=== PATIENT | female | born 1985 ===

== ENCOUNTER 2024-08-23 07:18 | Emergency (ER) | payer MEDICAID, SELFPAY ==
[2024-08-23] VITALS (7 sets, daily range): BP systolic 123–142; BP diastolic 63–82; PULSE 68–101; RESP 17–25; TEMP 35.8–36.7; O2SAT 94–99; BMI 22.7
--- NOTE | ~2024-08-23 | XR_ITS ---
EXAMINATION: XR CHEST CLINICAL INFORMATION: Shortness of breath. COMPARISON: None available. TECHNIQUE: Frontal view of the chest was obtained. FINDINGS: The lungs are well-expanded and clear of acute process. The heart size and pulmonary vascularity is normal. No gross bony abnormality seen. There is mild dextroscoliosis of dorsolumbar spine. XR/XR chest 1V IMPRESSION: Unremarkable chest exam. Electronically signed by: Fred Mathur MD 08/23/2024 08:39 AM EDT
--- NOTE | 2024-08-23 07:58 | ED_ITS ---
HPI - Asthma General Chief Complaint: Asthma Stated Complaint: Asthma Time Seen by Provider: 08/23/24 07:56 Source: patient Mode of arrival: ambulatory Limitations: no limitations History of Present Illness ED Provider: DR. Garcia HPI Narrative: 39-year-old female with history of asthma, patient is an active smoker came in for evaluation of wheezing and difficulty breathing with dry cough for the past 3 days that is worsened since 04:00 today, patient is been taking her updraft treatment at home with no relief. No fever, no chills, positive cough with clear thick sputum, no sick contacts, no recent travel, no lower extremity swelling or tenderness, no recent prolonged immobilization. Related Data Previous Rx's ?Medication ?Instructions ?Recorded albuterol sulfate 90 mcg/actuation 2 puff inhalation Q6H PRN 08/23/24 aerosol inhaler shortness of breath or wheezing #8.5 grams azithromycin 250 mg tablet See Rx Instructions PO .COMPLEX #6 08/23/24 (Zithromax Z-Phil) tabs prednisone 20 mg tablet 20 mg PO BID #10 tabs 08/23/24 Allergies Allergy/AdvReac Type Severity Reaction Status Date / Time shellfish derived Allergy Anaphylaxis Verified 08/23/24 07:21 Review of Systems 2 Review of Systems: All other systems are reviewed and are negative Constitutional: Reports as per HPI and Reports no additional constitutional complaints Eyes: Reports as per HPI and Reports no additional eye complaints Reports system reviewed and no additional complaints, except as documented Cardiovascular: Reports as per HPI and Reports no additional cardiovascular complaints Respiratory: Reports as per HPI and Reports no additional respiratory complaints Gastrointestinal: Reports as per HPI and Reports no additional gastrointestinal complaints Genitourinary: Reports no additional female genitourinary complaints Musculoskeletal: Reports no additional musculoskeletal complaints Skin/Breast: Reports system reviewed and no additional complaints, except as docu Psychiatric: Reports no additional psychiatric complaints Endocrine: Reports no additional endocrine complaints Hematologic/Lymphatic: Reports no additional hematologic/lymphatic complaints Allergic/Immunologic: Reports no additional allergic/immunologic complaints Reports system reviewed and no additional complaints, except as documented and Reports Abnormal speech present [facility] Social History Social History Alcohol intake: current Alcohol intake frequency: holidays/special occasions only Smoked in Last 30 Days: Yes Use of substances other than those prescribed or required for medical reasons: Yes Substance Use Type: Marijuana Substance Use Frequency: Chronic Longstanding Advance Directives: No Advance Directives Information Provided: No Physical Exam 2 Vital Signs: Vital Signs: Last Vital Signs Temp 96.5 F L 08/23/24 07:19 Pulse 96 08/23/24 10:51 Resp 17 08/23/24 10:21 BP 123/63 08/23/24 10:21 Pulse Ox 98 08/23/24 10:51 O2 Del Method Room Air 08/23/24 10:51 BMI result Body Mass Index 22.7 Vital signs have been reviewed and appear to be correct. Blood pressure elevated. Heart rate normal. Respiratory rate normal. Temperature normal. Oxygen saturation normal. Appearance: Alert. Oriented X3. No acute distress. Head: Normal external exam. Normocephalic. Atraumatic. No Hsu signs noted. No raccoon eyes noted Eyes: PERRLA. EOMI. Conjunctiva and sclera normal. Eyelids normal. ENT: TM's Normal. Pharynx normal. Uvula midline. Moist mucous membranes. No trismus noted. No drooling noted. No muffled voice noted. Neck: Normal inspection. Neck supple. FROM. No adenopathy. Thyroid Normal. No meningeal signs. No neck mass noted. CVS: Normal heart rate and rhythm. Heart sound normal. No murmurs noted. Pulses normal throughout. Respiratory: No respiratory distress. Painless inspiration. Breath sounds normal. diffuse expiratory wheezing with prolonged expiration, No accessory muscle usage noted or decreased air movement noted. Abdomen: Soft and nontender. Bowel sounds normal in all 4 quadrants. No distention noted. No organomegaly noted. No visible injury noted. Back: No CVA tenderness. Full range of motion noted. Skin: Skin warm and dry. Normal skin color. Normal skin turgor. No rashes/lesions/lacerations noted. Extremities: No lower extremity edema. Extremities exhibit normal range of motion. Extremities nontender. Neuro: Oriented X 3. Cranial nerve exam: II-XII are grossly intact No motor deficit. No sensory deficit. Reflexes normal. Course Reevaluation(s) Reevaluation #1: Patient feels better, less wheezing, more comfortable breathing, pulse oximetry while ambulating is 98% on room air and heart rate is 96 beats per minute Will discharge the patient on prednisone /bronchodilator and a Z-Phil. Time: 10:57 Medications Administered Discontinued Medications Generic Name Dose Route Start Last Admin Trade Name Miryam PRN Reason Stop Dose Admin Albuterol Sulfate 5 mg/ 0 mg 08/23/24 08:02 08/23/24 08:06 Albuterol/Ipratropium 3 ml INHALE 08/23/24 08:03 1 each ONCE ONE Administration Albuterol Sulfate 2.5 mg/ 0 mg 08/23/24 09:43 08/23/24 09:45 Albuterol/Ipratropium 3 ml INHALE 08/23/24 09:44 1 dose ONCE ONE Administration Magnesium Sulfate 2 gm in 50 mls @ 25 mls/hr 08/23/24 07:57 08/23/24 08:12 Magnesium Sulfate/H2o IV 08/23/24 09:56 25 mls/hr ONCE ONE Administration Methylprednisolone Sodium Succinate 125 mg 08/23/24 07:57 08/23/24 08:12 Methylprednisolone Sod Succ 125 Mg/2 Ml Vial IVPUSH 08/23/24 07:58 125 mg ONCE ONE Administration Medical Decision Making Differential Diagnosis Differential Diagnoses: The differential diagnosis associated with the presentation includes ( Pneumonia, pneumothorax, pleural effusion, electrolyte derangement, severe anemia.) Admission/Observation Consideration of admission/observation: Escalation of care including admission/observation considered Lab Data MDM Lab Attestation statement: I reviewed the patient's lab results. 08/23/24 08:12 10 08:57 Labs: Lab Results 08/23/24 08/23/24 Range/Units 08:12 08:57 WBC 7.7 (4.8-10.8) X10*3/uL RBC 4.78 (4.20-5.50) X10*6/uL Hgb 12.8 (12.0-16.0) g/dl Hct 38.7 (37.0-47.0) % MCV 81.0 (80.0-98.0) fL MCH 26.8 L (27.0-33.0) pg MCHC 33.1 (31.0-35.0) g/dl RDW 20.2 H (11.0-16.0) % Plt Count 304 (160-400) X10*3/uL MPV 10.7 (9.4-12.3) fL Immature Gran % (Auto) 0.4 (0.0-0.4) % Neut % (Auto) 63.9 (45-73) % Lymph % (Auto) 17.3 L (20-40) % [place] % (Auto) 7.9 (2-11) % Eos % (Auto) 9.3 H (0-4) % Baso % (Auto) 1.2 (0-2) % Lymph # (Auto) 1.3 (1.2-4.9) X10*3/uL [place] # (Auto) 0.6 (0.1-1.2) X10*3/uL Eos # (Auto) 0.7 H (0.0-0.4) X10*3/uL Baso # (Auto) 0.1 (0.0-0.2) X10*3/uL Abs Immat Gran (auto) 0.03 (0.00-0.03) X10*3/uL Absolute Neuts (auto) 4.9 (2.0-8.3) x10*3/uL Absolute Nucleated RBC 0.000 (0.0-0.012) X10*3/uL Nucleated RBC % (auto) 0.0 (0.0-0.2) /100WBC Sodium 138 (135-145) mmol/L Potassium 3.8 (3.3-5.1) mmol/L Chloride 109 H (96-108) mmol/L Carbon Dioxide 22 (22-29) mmol/L Anion Gap 11 L (12-20) BUN 7 L (9-16) mg/dL Creatinine 0.67 (0.5-1.4) mg/dL Estim Creat Clear Calc 99.4 Estimated GFR > 60 Random Glucose 106 (60-115) mg/dL Calcium 8.7 (8.4-10.2) mg/dL Total Bilirubin 0.4 (0.0-1.0) mg/dL Direct Bilirubin 0.2 (0.0-0.5) mg/dL AST 13 (5-31) U/L ALT 10 (0-31) U/L Alkaline Phosphatase 62 (39-117) U/L Troponin I High Sens < 2.7 (<3.5-17.0) ng/L Total Protein 7.7 (6.5-8.0) g/dL Albumin 4.2 (3.5-5.0) g/dL Lipase 10 (8-78) U/L Influenza Type A (PCR) NEGATIVE (Negative) Influenza Type B (PCR) NEGATIVE (Negative) RSV RNA Qual (PCR) NEGATIVE (Negative) SARS-CoV-2 RNA (RT-PCR) NEGATIVE (Negative) Independent Interpretation I performed an independent interpretation of an: Plain X-Ray ( chest: Unremarkable chest x-ray.) Radiology Impression Discussion of test interpretation with radiology: I have reviewed the radiologist's reading. Discharge Plan Discharge Clinical Impression: Asthma with acute exacerbation Patient Disposition: Home, Self-Care Instructions: Asthma (ED) Prescriptions: New prednisone 20 mg tablet 20 mg PO BID Qty: 10 0RF albuterol sulfate 90 mcg/actuation HFA aerosol inhaler 2 puff inhalation Q6H PRN (Reason: shortness of breath or wheezing) Qty: 8.5 0RF azithromycin [Zithromax Z-Phil] 250 mg tablet See Rx Instructions .ROUTE .COMPLEX Qty: 6 0RF Rx Instructions: For 250 mg dose pack: take 500 mg today (day 1), then 250 mg for 4 days (days 2-5) Print Language: Czech
[2024-08-23] MEDS: Albuterol Sulfate 5 MG, Albuterol/Iprat 2.5/0.5MG 3 ML 3 ML INHALE (08:06)
[2024-08-23] MEDS: Magnesium Sulfate/H2O 2 GM/50 ML PIGGYBACK IV (08:12)
[2024-08-23] MEDS: methylPREDNISolone Sod Succ 125 MG/2 ML VIAL IVPUSH (08:12)
[2024-08-23 08:19] LABS: MANUAL DIFF FLAG NO
[2024-08-23 08:21] LABS: Basophils Absolute Auto 0.1 X10*3/uL (0.0-0.2); Basophils Percent Auto 1.2 % (0-2); Eosinophils Absolute Auto 0.7 X10*3/uL (0.0-0.4); Eosinophils Percent Auto 9.3 % (0-4); Hematocrit 38.7 % (37.0-47.0); Hemoglobin 12.8 g/dl (12.0-16.0); Imm Gran Abs Auto 0.03 X10*3/uL (0.00-0.03); Imm Gran Pct Auto 0.4 % (0.0-0.4); Lymphocytes Absolute Auto 1.3 X10*3/uL (1.2-4.9); Lymphocytes Percent Auto 17.3 % (20-40); Mean Corpuscular HGB Conc 33.1 g/dl (31.0-35.0); Mean Corpuscular Hemoglobin 26.8 pg (27.0-33.0); Mean Platelet Volume 10.7 fL (9.4-12.3); Monocytes Absolute Auto 0.6 X10*3/uL (0.1-1.2); Monocytes Percent Auto 7.9 % (2-11); Neutrophils Absolute Auto 4.9 x10*3/uL (2.0-8.3); Neutrophils Percent Auto 63.9 % (45-73); Platelet Count 304 X10*3/uL (160-400); Red Blood Count 4.78 X10*6/uL (4.20-5.50); Red Cell Distribution Width 20.2 % (11.0-16.0); White Blood Count 7.7 X10*3/uL (4.8-10.8)
[2024-08-23 09:19] LABS: Alanine Aminotransferase 10 U/L (0-31); Albumin Level 4.2 g/dL (3.5-5.0); Alkaline Phosphatase 62 U/L (39-117); Anion Gap 11 (12-20); Aspartate Amino Transferase 13 U/L (5-31); Bilirubin Direct 0.2 mg/dL (0.0-0.5); Bilirubin Total 0.4 mg/dL (0.0-1.0); Blood Urea Nitrogen 7 mg/dL (9-16); Calcium 8.7 mg/dL (8.4-10.2); Carbon Dioxide 22 mmol/L (22-29); Chloride 109 mmol/L (96-108); Creatinine Clr Calc Pharmacy 99.4; Estimated Glomerular Filt Rate > 60; Glucose Random 106 mg/dL (60-115); Lipase 10 U/L (8-78); Potassium 3.8 mmol/L (3.3-5.1); Sodium 138 mmol/L (135-145); Total Protein 7.7 g/dL (6.5-8.0)
[2024-08-23 09:24] LABS: Influenza A PCR NEGATIVE (Negative); Influenza B PCR NEGATIVE (Negative); Resp Syncy Virus RNA Qual PCR NEGATIVE (Negative); SARS COV2 PCR INHOUSE NEGATIVE (Negative)
[2024-08-23 09:29] LABS: Troponin-I High Sensitivity < 2.7 ng/L (<3.5-17.0)
[2024-08-23] MEDS: Albuterol Sulfate 2.5 MG, Albuterol/Iprat 2.5/0.5MG 3 ML 3 ML INHALE (09:45)
== END 2024-08-23 11:29 | disposition home or self-care (01) ==
PROVIDERS: Emergency Provider Emergency Medicine
DX: J45.901 Unspecified asthma with (acute) exacerbation (principal); R05.9 Cough, unspecified; R06.02 Shortness of breath; Z03.818 Encounter for observation for suspected exposure to other biological agents ruled out; Z79.899 Other long term (current) drug therapy
CPT/HCPCS: 0241U; 71045; 80048; 80076; 83690; 84484; 85025; 94640; 96365; 96366; 96375; 99284; 99285; J2919; J3475

== ENCOUNTER 2025-01-12 15:01 | Emergency (ER) | payer MEDICAID, SELFPAY ==
[2025-01-12 15:38] VITALS: BP 120/79; PULSE 100; RESP 24; TEMP 36.3; O2SAT 100; BMI 22.5
[2025-01-12] MEDS: Ondansetron ODT 4 MG TAB.RAPDIS TRANSLINGU (15:43)
--- NOTE | 2025-01-12 17:20 | ED.GENADULT ---
HPI - General Adult General Chief complaint: Nausea/Vomiting/Diarrhea Stated complaint: vomiting Related Data Previous Rx's ?Medication ?Instructions ?Recorded albuterol sulfate 90 mcg/actuation 2 puff inhalation Q6H PRN 08/23/24 aerosol inhaler shortness of breath or wheezing #8.5 grams azithromycin 250 mg tablet See Rx Instructions PO .COMPLEX #6 08/23/24 (Zithromax Z-Phil) tabs prednisone 20 mg tablet 20 mg PO BID #10 tabs 08/23/24 Allergies Allergy/AdvReac Type Severity Reaction Status Date / Time shellfish derived Allergy Anaphylaxis Verified 01/12/25 15:40 [facility] Social History Social History Alcohol intake: current Alcohol intake frequency: holidays/special occasions only Substance Use Type: Marijuana Advance Directives: No Advance Directives Information Provided: No Do you have a plan to hurt others: No Plan Physical Exam ED Vital Signs: Vital Signs - 24 hr 01/12/25 15:38 Temperature 97.4 F Pulse Rate 100 Respiratory Rate 24 H Blood Pressure 120/79 Pulse Oximetry 100 Oxygen Delivery Method Room Air BMI result Body Mass Index 22.5 Course Course Course Narrative: This is a rapid medical exam performed by Monique Avalos NP: Additional HPI, ROS, PE not included below will be deferred to primary provider. Patient is a 39-year-old female presenting with nausea and vomiting since this am with associated abd pain. Plan: viral swabs, labs, UA Medications Administered Discontinued Medications Generic Name Dose Route Start Last Admin Trade Name Freq PRN Reason Stop Dose Admin Ondansetron HCl 4 mg 01/12/25 15:42 01/12/25 15:43 Ondansetron Odt 4 Mg Tab.Rapdis TRANSLINGU 01/12/25 15:43 4 mg ONCE ONE Administration Medical Decision Making Lab Data 01/12/25 17:38 01/12/25 17:38 Labs: Lab Results 01/12/25 Range/Units 17:38 WBC 9.1 (4.8-10.8) X10*3/uL RBC 5.13 (4.20-5.50) X10*6/uL Hgb 14.7 (12.0-16.0) g/dl Hct 44.4 (37.0-47.0) % MCV 86.5 (80.0-98.0) fL MCH 28.7 (27.0-33.0) pg MCHC 33.1 (31.0-35.0) g/dl RDW 17.3 H (11.0-16.0) % Plt Count 261 (160-400) X10*3/uL MPV 10.7 (9.4-12.3) fL Immature Gran % (Auto) 0.2 (0.0-0.4) % Neut % (Auto) 84.7 H (45-73) % Lymph % (Auto) 9.7 L (20-40) % [place] % (Auto) 4.7 (2-11) % Eos % (Auto) 0.4 (0-4) % Baso % (Auto) 0.3 (0-2) % Lymph # (Auto) 0.9 L (1.2-4.9) X10*3/uL [place] # (Auto) 0.4 (0.1-1.2) X10*3/uL Eos # (Auto) 0.0 (0.0-0.4) X10*3/uL Baso # (Auto) 0.0 (0.0-0.2) X10*3/uL Abs Immat Gran (auto) 0.02 (0.00-0.03) X10*3/uL Absolute Neuts (auto) 7.7 (2.0-8.3) x10*3/uL Absolute Nucleated RBC 0.000 (0.0-0.012) X10*3/uL Nucleated RBC % (auto) 0.0 (0.0-0.2) /100WBC Smear Tech's Comments VERIFIED PT 11.8 (10.9-12.4) SEC INR 1.0 (0.9-1.1) Sodium 139 (135-145) mmol/L Potassium 3.4 (3.3-5.1) mmol/L Chloride 106 (96-108) mmol/L Carbon Dioxide 25 (22-29) mmol/L Anion Gap 11 L (12-20) BUN 12 (9-16) mg/dL Creatinine 0.62 (0.5-1.4) mg/dL Estim Creat Clear Calc 107.4 Estimated GFR > 60 Random Glucose 140 H (60-115) mg/dL Calcium 9.1 (8.4-10.2) mg/dL Total Bilirubin 0.2 (0.0-1.0) mg/dL AST 42 H (5-31) U/L ALT 36 H (0-31) U/L Alkaline Phosphatase 82 (39-117) U/L Total Protein 8.5 H (6.5-8.0) g/dL Albumin 4.3 (3.5-5.0) g/dL Beta HCG, Quant < 2 mIU/mL Influenza Type A (PCR) NEGATIVE (Negative) Influenza Type B (PCR) NEGATIVE (Negative) RSV RNA Qual (PCR) NEGATIVE (Negative) SARS-CoV-2 RNA (RT-PCR) NEGATIVE (Negative) Discharge Plan Discharge Clinical Impression: Nausea & vomiting Patient Disposition: Left W/O Completing Treatment Prescriptions: No Action prednisone 20 mg tablet 20 mg PO BID Qty: 10 0RF albuterol sulfate 90 mcg/actuation HFA aerosol inhaler 2 puff inhalation Q6H PRN (Reason: shortness of breath or wheezing) Qty: 8.5 0RF azithromycin [Zithromax Z-Phil] 250 mg tablet See Rx Instructions .ROUTE .COMPLEX Qty: 6 0RF Rx Instructions: For 250 mg dose pack: take 500 mg today (day 1), then 250 mg for 4 days (days 2-5) Discharge Date/Time: 01/12/25 19:47
[2025-01-12 17:43] LABS: Basophils Percent Auto 0.3 % (0-2); Eosinophils Percent Auto 0.4 % (0-4); Hematocrit 44.4 % (37.0-47.0); Hemoglobin 14.7 g/dl (12.0-16.0); Imm Gran Abs Auto 0.02 X10*3/uL (0.00-0.03); Imm Gran Pct Auto 0.2 % (0.0-0.4); Lymphocytes Absolute Auto 0.9 X10*3/uL (1.2-4.9); Lymphocytes Percent Auto 9.7 % (20-40); MANUAL DIFF FLAG SCAN; Mean Corpuscular HGB Conc 33.1 g/dl (31.0-35.0); Mean Corpuscular Hemoglobin 28.7 pg (27.0-33.0); Mean Corpuscular Volume 86.5 fL (80.0-98.0); Mean Platelet Volume 10.7 fL (9.4-12.3); Monocytes Absolute Auto 0.4 X10*3/uL (0.1-1.2); Monocytes Percent Auto 4.7 % (2-11); Neutrophils Absolute Auto 7.7 x10*3/uL (2.0-8.3); Neutrophils Percent Auto 84.7 % (45-73); Platelet Count 261 X10*3/uL (160-400); Red Blood Count 5.13 X10*6/uL (4.20-5.50); Red Cell Distribution Width 17.3 % (11.0-16.0); SCAN SMEAR FLAG 1; White Blood Count 9.1 X10*3/uL (4.8-10.8)
[2025-01-12 17:48] LABS: Prothrombin Time 11.8 SEC (10.9-12.4)
[2025-01-12 18:03] LABS: SLIDE REVIEW VERIFIED
[2025-01-12 18:04] LABS: Alanine Aminotransferase 36 U/L (0-31); Albumin Level 4.3 g/dL (3.5-5.0); Alkaline Phosphatase 82 U/L (39-117); Anion Gap 11 (12-20); Aspartate Amino Transferase 42 U/L (5-31); Bilirubin Total 0.2 mg/dL (0.0-1.0); Blood Urea Nitrogen 12 mg/dL (9-16); Calcium 9.1 mg/dL (8.4-10.2); Carbon Dioxide 25 mmol/L (22-29); Chloride 106 mmol/L (96-108); Creatinine Clr Calc Pharmacy 107.4; Estimated Glomerular Filt Rate > 60; Glucose Random 140 mg/dL (60-115); HCG Quantitative < 2 mIU/mL; Potassium 3.4 mmol/L (3.3-5.1); Sodium 139 mmol/L (135-145); Total Protein 8.5 g/dL (6.5-8.0)
[2025-01-12 18:28] LABS: Influenza A PCR NEGATIVE (Negative); Influenza B PCR NEGATIVE (Negative); Resp Syncy Virus RNA Qual PCR NEGATIVE (Negative); SARS COV2 PCR INHOUSE NEGATIVE (Negative)
--- NOTE | 2025-01-12 19:47 | PC.NURSE ---
no answer from WR at 194
--- OUTSIDE RECORDS SUMMARY | 2025-01-12 20:00 | XMS_ITS | Clinical Summary ---
Author Organization [facility] Address [address] [place] [address] Phone Care Team Providers Care Label Remover Name Role Phone Physician, Pcp Unknown Primary Care Provider Ivonne vailable Social History Tobacco Use Types Packs/Day Years Used Date Smoking Tobacco: Never Assessed Comments Unknown Sex and Gender Information Value Date Recorded Sex Assigned at Not on file Legal Sex Female 3:44 PM EDT Gender Identity Not on file Sexual Orientation Not on file Plan of Treatment Health Maintenance Due Date Last Done Comments Breast Cancer Screening 1983 DTaP,Tdap,and Td Vaccines (1 - Tdap) 2002 Hepatitis B Vaccines (1 of 3 - 19+ 3-dose series) 2002 Pneumococcal Vaccine: Pediat rics (0 to 5 Years) and At-Risk Patients (6 to 64 Years) (1 of 2 - PCV) 2002 Cervical Cancer Screening: P ap Smear 02/03/2004 COVID-19 Vaccine (2023-2 5 season) 2024 Influenza Vaccine (#1) 2024 Depression Screening 08/26/2024 HIV Screening 08/26/2024 Hepatitis C Screening 08/26/2024 Social Influencers of Health Screening 08/26/2024 HIB Vaccines Aged Out No longer eligi ble based on patient's age to complete this topic HPV Vaccines Aged Out No longer eligi ble based on patient's age to complete this topic Hepatitis A Vaccines Aged Out No long er eligible based on patient's age to complete this topic IPV Vaccines Aged Out No longer eligi ble based on patient's age to complete this topic MMR Vaccines Aged Out No longer eligi ble based on patient's age to complete this topic Meningococcal ACWY Vaccine Aged Out N o longer eligible based on patient's age to complete this topic Meningococcal B Vacine Aged Out No lo nger eligible based on patient's age to complete this topic RSV Immunization Patients Un yo 20 months Aged Out No longer eligible b ased on patient's age to complete this topic Varicella Vaccines Aged Out No longer eligible based on patient's age to complete this topic Insurance MEDICAID - [place] Care Teams Label Remover Relationship Specialty Start Date End Date Physician, Pcp Unknown PCP - General 10/22/24
--- OUTSIDE RECORDS SUMMARY | 2025-01-12 20:00 | XMS_ITS | Data Portability ---
Author Organization [place] [facility] Address [address] [place] [address] Assessment No assessment recorded. Plan of Treatment Reminders Order Date Submit Date Provider Last Modified By Organization Details Last Modified Time Details Appointments None recorde d. Lab drug screen, urine 023 01/29/20 [email or web address], [address], [place], [address], 08:19:43 Referral None recorde d. Procedures None recorde d. Surgeries None recorde d. Imaging None recorde d. Medication Orders None recorde d. Patient TargetsNo targets recorded. Patient InstructionsNo instructions recorded. Reason for Referral None Reported. Results Created Date Observation Date Name Description Value Unit Range Abnormal Flag Note LastModifiedBy Organization Detail LastModifiedTime 01/29/2001/28/2023 drug scree n, urine THC negati ve Not Available [address] [facility], [place], [address], 01/28/2023 11:20:23 01/29/20 23 01/28/2023 drug scree n, urine MIKA negati ve Not Available [address], [place], [address], 01/28/2023 11:20:23 01/29/20 23 01/28/2023 drug scree n, urine OPI negati ve Not Available [address], [place], [address], 01/28/2023 11:20:23 01/29/20 23 01/28/2023 drug scree n, urine METH negati ve Not Available [address] [address], [place], [address], 01/28/2023 11:20:23 01/29/20 23 01/28/2023 drug scree n, urine AMP negati ve Not Available [address] [address], [place], [address], 01/28/2023 11:20:23 01/29/20 23 01/28/2023 drug scree n, urine PCP negati ve Not Available [address] [address], [place], [address], 01/28/2023 11:20:23 01/29/20 23 01/28/2023 drug scree n, urine BZP negati ve Not Available [address] [address], [place], [address], 01/28/2023 11:20:23 01/29/20 23 01/28/2023 drug scree n, urine BAR negati ve Not Available [address] [address], [place], [address], 01/28/2023 11:20:23 01/29/20 23 01/28/2023 drug scree n, urine MTD negati ve Not Available [address] [address], [place], [address], 01/28/2023 11:20:23 01/29/20 23 01/28/2023 drug scree n, urine OXY negati ve Not Available [address], [address], 01/28/2023 11:20:23 01/29/20 23 01/28/2023 drug scree n, urine MDMA negati ve Not Available [address] [address], [place], [address], 01/28/2023 11:20:23 Result Notes None recorded. Medical Equipment None Reported. Vitals None Recorded Social History None recorded. Functional Status None recorded. Mental Status None recorded. Family History Nothing Reported. Medical History No medical history recorded. Gynecological HistoryNo gynecological history recorded. Obstetrics History GPAL:G 0 P 0 0 0 0 Past Encounters Encounter ID Performer Location Encounter Start Date Encounter Closed Date Diagnosis/Indication Diagnosis SNOMED-CT Code Diagnosis ICD10 Code Diagnosis Note [id number] Farzad Chang MD [address] [place] [address] 01/28/2023 11:01:07 01/28/2023 11:21:52 History and physical examination, pre-employment 188498952 Z02.1 Health Concerns Section Related Observation LastModified by Organization Detai ls LastModified Time None Recorded Concern Status LastModified by Organization Details LastModified Time None Recorded Advance Directives Directive None Recorded Payers Encounter Date Sequence Insurance Name Policy Number Policy Cody Covered Member ID Cody Member ID Guarantor Name 01/28/2023 DARCY Cardenas Ariana [id number] OBGyn Episode No OBEpisode recorded.
--- OUTSIDE RECORDS SUMMARY | 2025-01-12 20:00 | XMS_ITS | Clinical Summary ---
Author Organization [facility] Address [address] [place] [address] Care Team Providers Care Photographic Technician Name Role Phone Chaparrita Lion PA-C Primary Care Provider Source Comments PLEASE NOTE, if this patient is a minor, it may be UNLAWFUL to discuss sensitive information that is contained in these records (such as FAMILY PLANNING, MENTAL HEALTH or SUBSTANCE ABUSE) with the minor patient's parent or other person without the patient's specific authorization.[facility] Allergies Active Allergy Reactions Criticality Noted Date Comments Shellfish Derived Anaphylaxis High 05/26/2024 Medications diclofenac sodium (VOLTAREN) 1 % gelIndications:P ersonal history of scoliosis,Chroni c bilateral low back pain without sciatica Apply 4 g topically 2 (two) times daily 150 g 1 4 Active nicotine, polacrilex, (NICORETTE) 2 mg gumIndications:T obacco use as needed for cravings - Weeks 1-6: Chew 1 piece of gum every 1-2 hours. Weeks 7-9: Chew 1 piece of gum every 2-4 hours. Weeks 10-12: Chew 1 piece of gum every 4-8 hours. (minimum: 9 pieces/day for first 6 weeks; maximum: 24 pieces/day during entire regimen 110 Each 3 4 Active budesonide-formo teroL (SYMBICORT) 160-4.5 mcg/actuation inhalerIndicatio ns:Asthma, unspecified asthma severity, unspecified whether complicated, unspecified whether persistent Inhale 2 Puffs into the lungs 2 (two) times daily 10.2 g 2 4 Active ferrous sulfate 325 mg (65 mg iron) tabletIndication s:Iron deficiency anemia, unspecified iron deficiency anemia type Take 1 Tablet by mouth every other day In the morning with breakfast 90 Tablet 3 4 Active VENTOLIN HFA 90 mcg/actuation inhalerIndicatio ns:Seasonal asthma INHALE TWO PUFFS INTO LUNGS EVERY 4 HOURS NEEDED FOR WHEEZING OR SHORTNESS OF BREATH 18 g 1 5 Active Active Problems Problem Noted Date Diagnosed Date Iron deficiency anemia 09/30/2024 History of asthma 09/29/2024 H/O scoliosis 07/14/2024 Overview (07/14/2024): 07/09/2024 - X-ray thoracic/lumbar spine - Impression: 8 degree dextroscoliosis with the apex at the T11-12 level, and 9 degree levoscoliosis with the apex at the L1-2 level History of mammogram 06/30/2024 Overview (07/07/2024): 06/09/2024 - Mammogram - Recommendation: Bilateral diagnostic 3D tomosynthesis with scheduled US. BI-RADS: 0 (incomplete - Need Additional Imaging Evaluation) 07/02/2024 - US Breast bilateral - Impression: Mammographic and sonographic findings consistent with cysts. There is no evidence of malignancy. Recommendation: Annual mammographic screening. BI-RADS: 2 (Benign) Immunizations Name Administration Dates Next Due PNEUMOCOCCAL CONJUGATE PCV 20 (Prevnar) 06/26/20 24 TDAP 06/26/2024 Family History Medical History Relation Name Comments Asthma Daughter 1 Asthma Daughter 2 Asthma Daughter 3 Asthma Daughter 4 No Known Problems Father Breast cancer Maternal Aunt 1 Breast cancer Maternal Aunt 2 No Known Problems Maternal Grandfather No Known Problems Maternal Grandmother Breast cancer Mother No Known Problems Paternal Grandfather No Known Problems Paternal Grandmother Relation Name Status Comments Brother Alive Daughter 1 Alive Daughter 2 Alive Daughter 3 Alive Daughter 4 Alive Father Alive Maternal Aunt 1 Alive Maternal Aunt 2 Maternal Grandfather Maternal Grandmother Mother Paternal Grandfather Paternal Grandmother Son Alive Social History Tobacco Use Types Packs/Day Years Used Date Smoking Tobacco: Every Day Cigarettes Passive Smoke Exposure: Current Smokeless Tobacco: Never Tobacco Cessation:Ready to Q uit: Not Asked; Counseling Given: Not Answered Comments:Patient current daily smoker - began smoking cigarettes 18 years of age: averaging 5-7 cigarettes/day - 1 pk every 3 day Alcohol Use Standard Drinks/Week Comments Yes 0 (1 standard drink = 0.6 oz pur e alcohol) social drinker Social Connections Answer Date Recorded Connectedness 0 07/28/2024 Financial Resource Strain Answer Date R ecorded Financial Resource Strain 0 2023 Stress Answer Date Recorded Stress 0 05/25/2024 Physical Activity Answer Date Recorded Physical Activity 0 05/25/2024 Food Insecurity Answer Date Recorded Food 0 08/13/2024 Transportation Needs Answer Date Record ed Transportation 0 05/25/2024 Housing Stability Answer Date Recorded Housing 0 05/25/2024 Safety and Environment Answer Date Deshawn rded Safety 1 05/26/2024 Utilities Answer Date Recorded Utilities 0 05/25/2024 Employment Answer Date Recorded Stress 0 05/26/2024 Comments No Sex and Gender Information Value Date Recorded Sex Assigned at Female 05/26/2024 1:33 PM PDT Legal Sex Female 8:41 AM PDT Gender Identity Female 05/26/2024 10:02 AM PDT Sexual Orientation Straight 05/26/2024 10 :02 AM PDT Last Filed Vital Signs Vital Sign Reading Time Taken Comments Blood Pressure 110/70 09/29/2024 9:09 AM EST Pulse 88 09/29/2024 9:09 AM EST Temperature 37.1 ??C (98.8 ??F) 09/29/2024 9:09 AM ES T Respiratory Rate 16 09/29/2024 9:09 AM EST Oxygen Saturation 98% 09/29/2024 9:09 AM EST Inhaled Oxygen Concentration - - Weight 64.4 kg (142 lb) 09/29/2024 9:09 AM EST Height 165.1 cm (5' 5 ) 09/29/2024 9:09 AM EST Body Mass Index 23.63 09/29/2024 9:09 AM EST Plan of Treatment Upcoming Encounters Date Type Department Care Team (Late st Contact Info) Description 01/21/2025 10:00 AM EST Office Visit [facility] [address] [place] [address] Chaparrita Lion PA-C [address] [place], [place] [id number] Health Maintenance Due Date Last Done Comments HPV Screening 1983 Pap + HPV 1983 Cervical Cancer Screening 02/03/2004 Pap Smear 02/03/2004 [id number] ( season) 2024 Imm-Influenza (#1) 2024 Alcohol and Drug Screen 11/18/2024 05/26/2024 Depression Annual Screen 11/18/2024 05/26/2024 Relationship Safety Screening/Counseling 05/26/2025 05/26/2024 Annual Preventive Care Visit 06/26/2025 06/26/2024 Hypertension Screening (#1) 09/29/2025 Tobacco Cessation Counseling (#1) 09/29/2025 Breast Cancer Screening (Mammogram) 07/02/202607/02, 06/09/2024 Diabetes Screening 05/26/2027 05/26/2024 Lipid Screening 05/26/2029 05/26/2024 Imm-DTaP/Tdap/Td (2 - Td or Tdap) 06/26/2034 024 HIV Screening Completed 05/26/2024 Hepatitis C Screening Completed 05/26/2024 Imm-Pneumococcal Completed 06/26/2024 Cervical Ablation/Cold-Knife Conization Discontinued Cervical Cryotherapy Discontinued Colposcopy Discontinued Endometrial Biopsy Discontinued Excision/Leep Discontinued HPV Genotyping Discontinued Imm-Hepatitis B Discontinued Vaginal Pap Discontinued Vulvoscopy Discontinued Procedures Procedure Name Priority Date/Time Associated Diagnosis Comments REFERRAL FOR DIAGNOSTIC MAMMOGRAM Routine 07/02/2024 3:00 AM EDT Abnormal mammogram Screening due Annual physical exam HIV 1/2 AG & AB W/RFLX (4TH GEN) Routine 05/26/2024 1:35 PM EDT Encounter to establish care HEPATITIS C AB W/RFLX HCV RNA, QT, RT PCR Routine 05/26/2024 1:35 PM EDT Encounter to establish care COMPREHENSIVE METABOLIC PANEL Routine 05/26/2024 1:35 PM EDT Encounter to establish care LIPID PANEL Routine 05/26/2024 1:35 PM EDT Encounter to establish care from Last 3 Months or Most Recently Relevant to Health Maintenance Results * REFERRAL FOR DIAGNOSTIC MAMMOGRAM (07/02/2024 3:00 AM EDT) 07/02/2024 3:00 AM EDT us Chaparrita Lion PA-C IMG RFL MAMMO Final Resul t * HEPATITIS C AB W/RFLX HCV RNA, QT, RT PCR (05/26/2024 1:35 PM EDT) HEPATITIS C ANTIBODY NON-REACT ASYA NON-REACT ASYA [facility] Comment: HCV antibody was non-reactive. There is no laboratory evidence of HCV infection. In most cases, no further action is required. However, if recent HCV exposure is suspected, a test for HCV RNA (test code 08191) is suggested. For additional information please refer to http://education.Playdek/faq/KKF80x9 (This link is being provided for informational/ educational purposes only.) Blood Blood / Unknown 05/26/2024 1 :35 PM EDT 05/26/2024 1:36 PM EDT Narrative [facility] - 05/28/2024 1:47 AM EDT FASTING:NO Chaparrita Lion PA-C LAB - BLOOD DRAW Edited Res ult - Final [facility] [address] [place] [id number], [facility] [address] [address] * HIV 1/2 AG & AB W/RFLX (4TH GEN) (05/26/2024 1:35 PM EDT) HIV AG/AB, 4TH GEN NON-REAC TIVE NON-REAC TIVE [facility] Comment: HIV-1 antigen and HIV-1/HIV-2 antibodies were not detected. There is no laboratory evidence of HIV infection. PLEASE NOTE: This information has been disclosed to you from records whose confidentiality may be protected by state law. ??If your state requires such protection, then the state law prohibits you from making any further disclosure of the information without the specific written consent of the person to whom it pertains, or as otherwise permitted by law. A general authorization for the release of medical or other information is NOT sufficient for this purpose. ?? For additional information please refer to http://[employer].Playdek/faq/UUW212 (This link is being provided for informational/ educational purposes only.) The performance of this assay has not been clinically validated in patients less than 2 years old. Blood Blood / Unknown 05/26/2024 1 :35 PM EDT 05/26/2024 1:36 PM EDT Narrative [facility] - 05/28/2024 1:47 AM EDT FASTING:NO Chaparrita Lion PA-C LAB - BLOOD DRAW Final Resu lt [facility] [address] [place] [id number], [facility] [address] [place] [phone] * (ABNORMAL) LIPID PANEL (05/26/2024 1:35 PM EDT) [facility] Signature CHOLESTEROL, TOTAL 196 <200 mg/dL [facility] HDL CHOLESTEROL 44(L) > OR = 50 mg/dL [facility] [employer] [facility] TRIGLYCERIDES 97 <150 mg/dL [facility] LDL-CHOLESTEROL 132(H) 99 mg/dL (calc) [facility] Comment: Reference range: <100 Desirable range <100 mg/dL for primary prevention; ?? <70 mg/dL for patients with CHD or diabetic patients with > or = 2 CHD risk factors. LDL-C is now calculated using the Diaz calculation, which is a validated novel method providing better accuracy than the Friedewald equation in the estimation of LDL-C. Luis Angel MCGUIRE et al. FELIX. 2013;310(19): 1551-5952 (http://education.PassbeeMedia/faq/UZO953) CHOL/HDLC RATIO 4.5 <5.0 (calc) [facility] NON-HDL CHOLESTEROL 152(H) <130 mg/dL (calc) [facility] Comment: For patients with diabetes plus 1 major ASCVD risk factor, treating to a non-HDL-C goal of <100 mg/dL (LDL-C of <70 mg/dL) is considered a therapeutic option. Blood Blood / Unknown 05/26/2024 1 :35 PM EDT 05/26/2024 1:36 PM EDT Narrative [employer] [facility] - 05/28/2024 1:47 AM EDT FASTING:NO Chaparrita Lion PA-C LAB - BLOOD DRAW Final Resu lt [employer] [facility] [address] [address], [employer] [facility] [address] [place] [address] * COMPREHENSIVE METABOLIC PANEL (05/26/2024 1:35 PM EDT) GLUCOSE 94 65 - 139 mg/dL [facility] Comment: ?Non-fasting reference interval UREA NITROGEN (BUN) 8 7 - 25 mg/dL [employer] [facility] CREATININE (blood) 0.58 0.50 - 0.99 mg/dL [employer] [facility] EGFR 117 > OR = 60 mL/min/1. 73m2 [employer] [facility] BUN/CREATININE RATIO SEE NOTE: [facility] [employer] [facility] Comment: ?? Not Reported: BUN and Creatinine are within ?? reference range. ? SODIUM 135 135 - 146 mmol/L [employer] [facility] POTASSIUM 4.1 3.5 - 5.3 mmol/L [employer] [facility] CHLORIDE 102 98 - 110 mmol/L [employer] [facility] CARBON DIOXIDE 26 20 - 32 mmol/L [employer] [facility] CALCIUM 9.0 8.6 - 10.2 mg/dL [employer] [facility] PROTEIN, TOTAL 7.7 6.1 - 8.1 g/dL [employer] [facility] ALBUMIN 4.3 3.6 - 5.1 g/dL [employer] [facility] GLOBULIN 3.4 1.9 - 3.7 g/dL (calc) [employer] [facility] ALBUMIN/GLOBULI N RATIO 1.3 1.0 - 2.5 (calc) [employer] [facility] BILIRUBIN, TOTAL 0.3 0.2 - 1.2 mg/dL [employer] [facility] ALKALINE PHOSPHATASE 57 31 - 125 U/L [facility] AST 18 10 - 30 U/L [facility] ALT 12 6 - 29 U/L [facility] [facility] Blood Blood / Unknown 05/26/2024 1 :35 PM EDT 05/26/2024 1:36 PM EDT Narrative [facility] - 05/28/2024 1:47 AM EDT FASTING:NO Chaparrita Lion PA-C LAB - BLOOD DRAW Edited Res ult - Final [employer] [facility] [address] [address], [employer] [facility] [address] [place] [address] from Last 3 Months or Most Recently Relevant to Health Maintenance Insurance [facility] Care Teams Photographic Technician Relationship Specialty Start Date End Date Chaparrita Lion PA-C [address] [place] [address] PCP - General Primary Care 09/04/24
== END 2025-01-12 19:47 | disposition left against medical advice (07) ==
PROVIDERS: Registered Nurse Emergency; Emergency Provider Emergency Medicine; PCP Student in an Organized Health Care Education/Training Program
DX: R11.2 Nausea with vomiting, unspecified (principal); R10.9 Unspecified abdominal pain; Z03.818 Encounter for observation for suspected exposure to other biological agents ruled out; Z79.899 Other long term (current) drug therapy
CPT/HCPCS: 0241U; 80053; 84702; 85025; 85610; 99281; 99283